=== PATIENT | female | born 1990 ===

== ENCOUNTER 2023-07-30 11:14 | Outpatient (CLI) | payer BC, MEDICAID, SELFPAY ==
[2023-07-30 12:57] LABS: C Reactive Protein 9.1 mg/L (0.0-4.9)
[2023-07-30 13:01] LABS: Erythrocyte Sedimentation Rate 22 mm/hr (0-15)
[2023-07-31 14:24] LABS: Cyclic Citrullinated Peptide <16 UNITS
[2023-07-31 15:59] LABS: Anti-Nuclear Antibody Screen NEGATIVE (NEGATIVE)
[2023-07-31 21:38] LABS: Lupus DRVVT Confirm NEGATIVE (NEGATIVE); Lupus Hexagonal Phas Confirm WEAKLY POSITIVE (NEGATIVE); Lupus Thrombin Clotting Time 15 sec (13-19); PTT-LA-Screen 48 sec (< OR = 40)
== END 2023-07-30 11:15 | disposition home or self-care (01) ==
LOC: LAB 11:23
PROVIDERS: PCP Nurse Practitioner Family; Visit Provider Nurse Practitioner Family
DX: M25.50 Pain in unspecified joint (principal); R53.83 Other fatigue; R21 Rash and other nonspecific skin eruption
CPT/HCPCS: 36415; 85613; 85651; 85730; 86038; 86140; 86200; 86431

== ENCOUNTER 2023-11-27 10:04 | Outpatient (CLI) | payer BC, MEDICAID, SELFPAY ==
[2023-11-27 10:42] LABS: Basophils # 0.1 10^3/uL (0.0-0.1); Basophils % 1.1 %; Eosinophils # 0.5 10^3/uL (0.0-0.8); Eosinophils % 7.3 %; Hematocrit 35.4 % (36-47); Lymphocytes # 1.8 10^3/uL (0.8-4.8); Lymphocytes % 28.3 %; Mean Corpuscular HGB Conc 33.6 g/dL (30-55); Mean Corpuscular Hemoglobin 30.4 pg (27-33); Mean Corpuscular Volume 90.5 fl (85-98); Monocytes # 0.4 10^3/uL (0.2-0.9); Monocytes % 6.7 %; Neutrophils # 3.61 10^3/uL (1.8-7.7); Neutrophils % 56.3 %; Nucleated Red Blood Cells % 0 %; Platelet Count 314 10^3/cmm (157-399); Red Blood Count 3.91 10^6/uL (3.85-5.65); Red Cell Distribution Width 12.6 % (12.1-15.1); White Blood Count 6.42 10^3/uL (3.29-11.43)
[2023-11-27 10:49] LABS: Erythrocyte Sedimentation Rate 8 mm/hr (0-15)
[2023-11-27 11:18] LABS: 25 Hydroxy Vitamin D 39 ng/mL (30-100); Alanine Aminotransferase 15 U/L (0-33); Albumin Level 4.3 g/dL (3.5-5.2); Alkaline Phosphatase 94 U/L (35-105); Aspartate Amino Transferase 16 U/L (0-32); Blood Urea Nitrogen 13 mg/dL (6-20); C Reactive Protein 4.8 mg/L (0.0-4.9); Calcium 8.8 mg/dL (8.5-10.5); Carbon Dioxide 24 mmol/L (22-29); Chloride 104 mmol/L (98-107); Chol HDL Ratio 3.43 mg/dL (0.0-4.40); Cholesterol 151 mg/dL (0-200); Globulin 2.8 g/dL (1.3-4.6); Glomerular Filtration Rate 115.1 mL/min (90-130); Glucose 102 mg/dL (65-115); HDL Cholesterol 44 mg/dL (60-100); LDL Cholesterol Calculated 84 mg/dL (50-129); LDL HDL Ratio 1.91 RATIO (0.00-3.22); Osmolality Calculated 286 mOsm/kg (285-295); Sodium 138 mmol/L (136-145); Thyroid Stimulating Hormone 1.08 uIU/mL (0.27-4.20); Total Bilirubin 0.4 mg/dL (0.15-1.2); Total Protein 7.1 g/dL (6.6-8.7); Triglycerides 116 mg/dL (0-150); Vitamin B12 278 pg/mL (232-1245)
[2023-11-27 11:23] LABS: Folate Level 8.7 ng/mL (4.8-37.3)
== END 2023-11-27 10:05 | disposition home or self-care (01) ==
LOC: LAB 10:09
PROVIDERS: PCP Nurse Practitioner Family; Visit Provider Nurse Practitioner Family
DX: R79.82 Elevated C-reactive protein (CRP) (principal); R76.8 Other specified abnormal immunological findings in serum; E78.5 Hyperlipidemia, unspecified; E66.9 Obesity, unspecified; F41.9 Anxiety disorder, unspecified; F43.10 Post-traumatic stress disorder, unspecified; E55.9 Vitamin D deficiency, unspecified; R53.83 Other fatigue; R79.1 Abnormal coagulation profile
CPT/HCPCS: 36415; 80053; 80061; 82306; 82607; 82746; 84443; 85025; 85613; 85651; 85730; 86140